=== PATIENT | male | born 1970 | race Caucasian/White ===

== ENCOUNTER 2016-07-28 21:21 | Emergency (ER) | payer MEDICARE | END 2016-07-28 22:39 | disposition home or self-care (01) | LOC: ER 21:21 | DX: M25.532 Pain in left wrist (principal); R20.2 Paresthesia of skin; R11.0 Nausea; R68.83 Chills (without fever); F41.9 Anxiety disorder, unspecified; F17.220 Nicotine dependence, chewing tobacco, uncomplicated; W19.XXXA Unspecified fall, initial encounter ==